=== PATIENT | male | born 2000 | race Caucasian/White ===

== ENCOUNTER 2021-02-18 04:02 | Emergency (ER) | payer OTHER ==
[~2021-02-18] VITALS: Ht 177.8 cm; Wt 61.2 kg
--- NOTE | 2021-02-18 04:02 | NUR ---
PT RAMA IRIZARRY, PREBOOK. TAKEN TO CHAIR
[2021-02-18 04:08] VITALS: BP 120/84
--- NOTE | 2021-02-18 04:13 | NUR ---
Dr. Garcia examining patient.
--- NOTE | 2021-02-18 04:26 | NUR ---
PATIENT [facility] [employer] DEPT. PATIENT EXAMINED BY DR. ZULUAGA. PATIENT MEDICALLY CLEARED AND RELEASED IN CUSTODY IN STABLE CONDITION. ORIGINAL PRE-BOOK FORM GIVEN TO OFFICER PETER.
== END 2021-02-18 04:26 ==
LOC: MED 04:02
DX: S90.122A Contusion of left lesser toe(s) without damage to nail, initial encounter (principal); Z02.89 Encounter for other administrative examinations; V98.8XXA Other specified transport accidents, initial encounter; Y93.89 Activity, other specified; Y92.89 Other specified places as the place of occurrence of the external cause; Y99.8 Other external cause status
CPT/HCPCS: 99283